=== PATIENT | female | born 1955 | race Caucasian/White ===

== ENCOUNTER 2024-06-08 22:42 | Inpatient (IN) | payer OTHER, SELFPAY ==
[2024-06-08 17:51] VITALS: BP 155/109
[2024-06-08 18:16] LABS: % Basophils 0.3 % (0-2); % Immature Granulocytes 0.6 % (0-0.5); % Lymphocytes 3.5 % (20.5-51.1); % Monocytes 6.6 % (1.7-9.3); Absolute Immature Granulocytes 0.1 10^3/uL (0-0.05); Absolute Lymphocytes 0.5 10^3/uL (1.2-3.4); Absolute Neutrophils 12.8 10^3/uL (1.4-6.5); Hematocrit 46.3 % (37.0-47.0); Hemoglobin 15.4 g/dL (12.0-16.0); Mean Corp Hgb Conc. 33.3 g/dL (33.0-37.0); Mean Corpuscular Hgb 30.3 pg (27.0-31.0); Mean Platelet Volume 10.3 fL (7.4-10.4); Nucleated Red Blood Cells % 0 %; Platelet Count 194 10^3/uL (130-400); Red Blood Cell Count 5.09 10^6/uL (4.20-5.40); Red Cell Dist. Width 12.3 % (11.5-14.5); White Blood Cell Count 14.4 10^3/uL (4.8-10.8)
[2024-06-08 18:34] LABS: Lactic Acid 3.2 mmol/L (0.7-2.0)
[2024-06-08 18:35] LABS: ALT (SGPT) 22 U/L (0-35); AST (SGOT) 34 U/L (14-36); Albumin 4.8 g/dl (3.5-5.0); Alkaline Phosphatase 99 U/L (38-126); Blood Urea Nitrogen 18 mg/dl (7-17); Calcium 8.9 mg/dl (8.4-10.2); Carbon Dioxide 35 mmol/L (22-30); Chloride 87 mmol/L (98-107); Glucose 141 mg/dl (70-99); Potassium 3.7 mmol/L (3.5-5.1); Sodium 134 mmol/L (135-145); Total Bilirubin 0.9 mg/dl (0.2-1.3); Total Protein 8.5 g/dl (6.3-8.2); eGFR > 60.00
[2024-06-08 18:49] LABS: COVID-19 Antigen Negative (Negative)
--- NOTE | 2024-06-08 18:58 | ED.GENMED ---
History of Present Illness
General
Chief Complaint: Cold/Flu/URI Symptoms
Source: patient
Exam Limitations: none
Time Seen by Provider: 06/08/24 18:54
Nursing documentation reviewed up to this point in time: agreed with
History of Present Illness
History of Present Illness:
68 y/o F with h/o valve replacement
homelessness/lives in car
3-4 days of headache, cough, congestion, chills, fatigue, mild diarrhea, and some urinary incontinence
no cp, sob, neck stiffness, confusion, vomiting
says 'i need a note saying i'm sick so i can sleep in a hotel.'
pt has a chronic murmur
no h/o endocarditis
nothing taken for feveres today
Past History
Past History
ED Past Medical History: HTN
Social History
Alcohol: None
Review of Systems
Review of Systems
Allergies reviewed?: Yes
All Other Systems: Not applicable
Phy Exam
Physical Exam
Physical Exam:
GENERAL: Alert , in no apparent distress ill-appearing, thin, frail
EYE: pupils equal and reactive
NECK: Supple
ENT: o/p clr, dry mouth, oral pharynx slightly erythematous
CARDIAC: Regular rate and rhythm .
LUNGS: Crackles left base, occasional cough
Back: Significant scoliosis
ABDOMEN: Soft, without focal tenderness, no r/g, no cvat, normal bowel sounds
NEUROLOGICAL: Alert and oriented, no focal neuro deficits
SKIN: Warm and dry, skin intact.
MUSCULOSKELETAL: No edema, well perfused. neg jazzmine's sign
PSYCH: Normal and appropriate interaction.
Sepsis
Sepsis Screening
Sepsis Assessment: Severe Sepsis
Sepsis Screening: Lactate >2mmol/L
Sepsis Screen
Sepsis Screen: Severe Sepsis
Date: 06/09/24
Time: 03:33
Course
Orders/Labs/Results
Orders:
Orders
06/08/24 18:01
COVID-19 Antigen Urgent
Source: Nasal Swab
Complete Blood Count/With Diff Urgent
Comprehensive Metabolic Panel Urgent
Lactic Acid Urgent
Urinalysis Reflex To Culture Urgent
Date Specimen was Collected: 06/08/24
Time Specimen was Collected: 17:55
Urine Microscopic Reflex Cult Urgent
Influenza A+B Rapid Molecular Urgent
ANTOLIN Source: Nasal Swab
Specimen Description:
Date Specimen was Collected: 06/08/24
Time Specimen was Collected: 17:55
Urine Culture Urgent
ANTOLIN Source: U
Specimen Description:
Date Specimen was Collected: 06/08/24
Time Specimen was Collected: 17:55
06/08/24 19:09
0.9% Sodium Chloride 1000 ml [Nss] 1,000 ml IV BOLUS
Acetaminophen [Tylenol] 650 mg PO NOW STA
06/08/24 19:22
CR Chest - 2 Views Urgent
Comment:
Reason For Exam: fever, cough
06/08/24 19:47
Blood Culture Urgent
ANTOLIN Source: Blood/Venous
Specimen Description:
06/08/24 21:28
Piperacillin/Tazo 3.375 Gram [Zosyn] 3.375 gram in 50 ml IV NOW
06/08/24 21:35
Azithromycin 500 mg/250 ml [Zithromax Infusion] 500 mg in 250 ml IV NOW
CefTRIAXone [Rocephin] 2,000 mg IV NOW STA
06/08/24 22:00
Flush (0.9% Sodium Chloride) [Flush (Nss)] See Dose Instructions IV PER PROTOCOL
06/08/24 22:24
Admit/Transfer Patient As Directed
Co-Sign Provider:
Level of Care: Inpatient admission
Assign to:: Medical/Surgical
Physician / Group: Hospitalist
Diagnosis: PNA
Reason for Hospitalization: PNA
Expected length of stay greater than two midnights?: Yes
ELOS- Estimated Length of Stay in days: 4
I certify the patient meets the requirements for IP care: Yes
PRN Pain Medication Management As Directed
May give lesser potent ordered pain med per pt: Yes
preference::
Protocol:: Medication orders for pain may be administered in a
manner that supports deferring to patient preference
when the pt is:
- Requesting an ordered lesser potent pain medication.
Least to most potent pain medications are defined
as: acetaminophen < NSAID < tramadol < opioids
(morphine, oxycodone, hydromorphone).
- Requesting a lesser dose of the same medication IF
ORDERED.
- Requesting a less intrusive route of administration
if both routes are prescribed by the provider (PO <
IV).
06/08/24 22:25
Code Status As Directed
Resuscitation Status: Full Code
06/09/24 00:47
0.9% Sodium Chloride 1000 ml [Nss] 1,000 ml IV 200 mls/hr
06/09/24 00:47
Respiratory Culture/Gram Stain Urgent
ANTOLIN Source: Sputum
Specimen Description:
Activity As Directed
Activity Level: Out of Bed-Early Mobility
Intake/ Output As Directed
Frequency: Per unit guidelines
Pneumatic Compression Sleeves As Directed
Type: Knee high
Vital Signs As Directed
Frequency: Per unit guidelines
Weight As Directed
Frequency: Once
Comment: on admission
Rx Incentive Spirometry [RESP] Routine
Frequency: q1h while awake
Rx Pep / Acapela [RESP] Routine
Pt Eval And Treat Routine
Treatment: eval gait
Activity Level: Ambulate
DX Deep Vein Thrombosis Video Routine
06/09/24 06:00
Echo 2D MMode Color/Doppler IN AM
Reason for Study: heart murmur and h/o aortic graft
Regular
At Your Request: Full Participation
Does patient need a safe tray?: No
Basic Metabolic Panel IN AM
Complete Blood Count/No Diff IN AM
06/09/24 22:00
Azithromycin 500 mg/250 ml [Zithromax Infusion] 500 mg in 250 ml IV Q24H
CefTRIAXone [Rocephin] 1,000 mg IV Q24H
Abnormal Lab Results
06/08/24
18:01
WBC 14.4 H 10^3/uL
(4.8-10.8)
Abs Immat Gran (auto) 0.1 H 10^3/uL
(0-0.05)
Absolute Neuts (auto) 12.8 H 10^3/uL
(1.4-6.5)
Absolute Lymphs (auto) 0.5 L 10^3/uL
(1.2-3.4)
Absolute Monos (auto) 1.0 H 10^3/uL
(0.1-0.6)
Immature Gran % 0.6 H %
(0-0.5)
Neutrophils % 89.0 H %
(42.2-75.2)
Lymphocytes % 3.5 L %
(20.5-51.1)
Sodium 134 L mmol/L
(135-145)
Chloride 87 L mmol/L
(98-107)
Carbon Dioxide 35 H mmol/L
(22-30)
BUN 18 H mg/dl
(7-17)
Glucose 141 H mg/dl
(70-99)
Lactic Acid 3.2 H mmol/L
(0.7-2.0)
Total Protein 8.5 H g/dl
(6.3-8.2)
Ur Occult Blood Reflex 1+ A
(Negative)
Leukocyte Esterase Rfl 1+ A
(Negative)
Urine RBC 3-6 A /HPF
(0-2)
Urine Bacteria (Reflex) Many A
(Negative)
Urine Albumin (Reflex) 3+ A
(Neg - Trace)
06/08/24 18:01
06/08/24 18:01
Vital Signs
Temp: 38.1 C
Initial and Last Documented VS:
Initial Vital Signs
Temp Pulse Resp BP Pulse Ox
36.9 C 87 20 155/109 93
06/08/24 17:51 06/08/24 17:51 06/08/24 17:51 06/08/24 17:51 06/08/24 17:51
Last Documented Vital Signs
Temp Pulse Resp BP Pulse Ox
37.0 C 82 18 136/67 99
06/09/24 01:01 06/09/24 01:01 06/09/24 01:01 06/09/24 01:01 06/09/24 01:51
MDM/Problems Addressed
Differential Diagnosis Includes:
pna, sepsis, bacteremia, uti
MDM/Problems Addressed:
stefano gaitan
68 y/o F hmoeless, lives in car
htn, bipolar
denies IVDA
3 days uri sxs, cough, fever, headache, fatigue
febrile here, pulse ox 93%, crackles L base, looks ill, hypertensive
lactic 3, wbc 14, flu/covid neg, cxr L loculated pleural effusion
oh to start with rocephin/zithro fo rabx
pt requires admission
*Critical Care Note
Total Time (30-74mins, 75-104mins- exclusive of procedures): Not Applicable
ED Attending Note
-
Portions of this chart may have been created with voice recognition software.� Occasional wrong word or��sound alike� substitutions may have occurred due to the inherent limitations of voice recognition software.
Discharge Plan
Departure
Patient Disposition: Admit
Date of Disposition: 06/08/24
Time of Disposition: 21:21
Admit to: Med/Surg
Presentation/result/management discussed w/ accepting MD/DO: Hospitalist
Condition: Fair
Covid-19: Negative COVID-19
Discharge Problem:
Pneumonia, Acidosis, lactic
Interventions
Interventions:
*Risk Screen - Suicide Last Done: 06/09/24 01:15
*General Assessment Last Done: 06/08/24 17:51
*Neglect/Abuse Screening Last Done: 06/08/24 19:45
ED- Fall Risk Assessment Last Done: 06/08/24 19:45
*ED COVID-19 Vaccine History Last Done: 06/09/24 01:03
*Nursing Disposition Last Done: 06/08/24 19:45
ED- Pulmonary Assessment Last Done: 06/08/24 19:45
Discharge Date and Time
Discharge Date/Time: 06/09/24 00:42
[2024-06-08 19:36] VITALS: BMI 18.4
[2024-06-08] MEDS: TYLENOL 650 MG PO (19:47)
[2024-06-08] MEDS: NSS 1000 IV (19:48)
[2024-06-08 21:01] VITALS: BP 119/64
[2024-06-08 21:35] VITALS: BP 115/60
[2024-06-08] MEDS: ROCEPHIN 2000 MG IV (21:43)
[2024-06-08] MEDS: ZITHROMAX INFUSION 250 IV (21:46)
[2024-06-08 22:12] VITALS: BP 101/56
--- NOTE | 2024-06-08 22:16 | HPS.HSE ---
Family Physician
-
Family Physician: NOT KNOW UNKNOWN - PT DOES
Chief Complaint
-
Cough
History of Present Illness
68 y/o woman with h/o aortic graft, currently homelessness and living in her car has had 3-4 days of headache, cough, congestion, chills, fatigue, mild diarrhea, and some urinary incontinence. She reports no cp, sob, neck stiffness, confusion,
vomiting. Pt stated that she has a chronic murmur. and reports no past h/o endocarditis. At the time of my exam she appeared very weak. ER Xray showed:Small loculated left pleural effusion.
Medical History
Past Medical History
Past Medical History: Reports Other
Additional Past Medical History:
Essential HTN
Aortic graft
Past Surgical History: Reports Other
Additional Past Surgical History:
See above
Social History
Tobacco: Non-smoker
Alcohol: None
Drug: None
Living: Homeless
Family History
Family History: Not pertinent
Allergies / Home Medications
Allergies reflects when Allergies were last updated in [employer].
Home Medications with original date entered in [employer]
Allergy/Medication List:
Allergies
Allergy/AdvReac Type Severity Reaction Status Date / Time
No Known Allergies Allergy Verified 06/08/24 17:51
No home meds.
If medication reconciliation has not been performed, why?: Medication List N/A
Review of Systems
-
Unable to obtain full review of systems at this time due to: Acuity
History Source: Patient
A 12 point ROS was completed and negative except as noted: Yes
Physical Exam
Vital Signs
Vital Signs
Temp Pulse Resp BP Pulse Ox
99.7 F 83 26 115/60 91
06/08/24 21:01 06/08/24 22:12 06/08/24 22:12 06/08/24 21:35 06/08/24 22:12
Physical Exam
General: Respiratory Distress, Appears in Distress, Pain, Appears Chronically Ill and Cachectic
HEENT: NormoCephalic, Nose Appears Normal and Ears Appear Normal
Respiratory: Rhonchi and Decreased Breath Sounds
Cardiac: S1/S2, Regular Rhythm and Murmur
GI: Soft, Non Tender and Non Distended
Musculoskeletal: No Clubbing, No Cyanosis and No Edema
Skin: Warm and Dry
Neuro: Awake and Alert
Psych: Calm
Laboratory Results
-
06/08/24 18:01
06/08/24 18:
Laboratory Results
Lactic Acid 3.2 mmol/L (0.7-2.0) H 06/08/24 18:01
Total Bilirubin 0.9 mg/dl (0.2-1.3) 06/08/24 18:01
AST 34 U/L (14-36) 06/08/24 18:01
ALT 22 U/L (0-35) 06/08/24 18:01
Alkaline Phosphatase 99 U/L (38-126) 06/08/24 18:01
Data Reviewed
-
Lab Data: Labs Reviewed by me
Impression/Plan
-
IMPRESSION:
68 woman with a pneumonia
PLAN:
1. Pneumonia - community acquired. Elevated LA, but vitals stable.
ABx per protocol z-mycin and rocephin
Follow for clinical improvement
IV saline
Supportive care
Encourage PO nutrition
2. BUN/Creat > 20, likely from acute metabolic need
IV saline
Check renal function in am
3. Heart murmur and h/o aortic graft and now active infection
Blood cultures
Check echo in am
Full code
VCD for DVTp
[2024-06-08 22:20] LABS: Urine Albumin 3+ (Neg - Trace); Urine Bilirubin Negative (Negative); Urine Character Clear (Clear); Urine Color Yellow; Urine Glucose Negative (Negative); Urine Ketone Negative (Negative); Urine Leukocyte 1+ (Negative); Urine Nitrite Negative (Negative); Urine Occult Blood 1+ (Negative); Urine Urobilinogen 1+ (Neg - 1+)
[2024-06-08 22:29] LABS: Urine Amorphous Seen
[2024-06-08 22:31] LABS: Urine Bacteria Many (Negative)
[2024-06-08 22:32] LABS: Urine Calcium Oxalate Crystals Seen
[2024-06-08 23:00] VITALS: BP 110/60
[2024-06-09 01:01] VITALS: BP 136/67; BMI 17.8
[2024-06-09] MEDS: NSS 1000 IV ×3 (01:03→12:13)
--- NOTE | 2024-06-09 01:55 | TRANSFER ---
pt arrived from ED on stretcher. pt ambulated from stretcher to bed with RN as standby assist. pt AAOx3 upon arrival, drowsy and lethargic. VSS. oriented pt to room, call tabor within reach, plan of care ongoing.
[2024-06-09 06:00] VITALS: BMI 17.8
[2024-06-09 07:48] LABS: Blood Urea Nitrogen 22 mg/dl (7-17); Calcium 7.9 mg/dl (8.4-10.2); Carbon Dioxide 33 mmol/L (22-30); Chloride 95 mmol/L (98-107); Estimated Creatinine Clearance 62 ml/min; Glucose 91 mg/dl (70-99); Potassium 3.3 mmol/L (3.5-5.1); Sodium 134 mmol/L (135-145); eGFR > 60.00
[2024-06-09 07:55] VITALS: BP 135/65
[2024-06-09 07:56] LABS: Hemoglobin 13.4 g/dL (12.0-16.0); Mean Corp Hgb Conc. 33.5 g/dL (33.0-37.0); Mean Corpuscular Hgb 30.4 pg (27.0-31.0); Mean Corpuscular Volume 90.7 fL (81.0-99.0); Mean Platelet Volume 10.4 fL (7.4-10.4); Platelet Count 148 10^3/uL (130-400); Red Blood Cell Count 4.41 10^6/uL (4.20-5.40); Red Cell Dist. Width 12.4 % (11.5-14.5); White Blood Cell Count 12.5 10^3/uL (4.8-10.8)
--- NOTE | 2024-06-09 09:53 | W.PN.HOSP.TC ---
Today's Communication/Plan
-
Potassium replacement
Cough medicine
CT chest
EKG
Echo
Urine drug screen
Add PRN Hydralazine
Assessment / Plan
Assessment / Plan
Physical Exam
General: not in respiratory Distress, Appears Chronically Ill and Cachectic
HEENT: Normocephalic, Nose Appears Normal and Ears Appear Normal
Respiratory: Rhonchi and Decreased Breath Sounds, Scoliosis
Cardiac: S1/S2,
GI: Soft, Non Tender and Non Distended
Musculoskeletal: No Clubbing, No Cyanosis and No Edema
Skin: Warm and Dry
Neuro: Awake and Alert
Psych: Calm
# Acute respiratory distress
Community acquired Pneumonia -
Sepsis POA with lactic acidosis, tachycardia, mild fever, leukocytosis
c/w IV z-mycin and Rocephin
Will order chest CT
IV saline
Add cough medicine
WBC is coming down
Supportive care
Check urine drug screen
Encourage PO nutrition
# High BP on arrival
Improved since admission,likely stress related, check urine drug screen
No history of drug use.
Add PRN hydralazine
# Under weight
# Hypokalemia
replace
#Hyponatremia
# Heart murmur and h/o aortic graft and now active infection
Blood cultures
Order EKG
Check echo in am
Full code
Total time spent to see the patient, examine the patient, review data and lab results, discuss treatment plan with patient and nursing staff around 55 minutes
Anticipated Discharge: > 48 hours
Subjective/Interval History
-
Date of Service: June 09, 2024
She complains of weakness, fatigue, cough
Objective Data
-
Labs:
Laboratory Results
06/09/24
06:36
WBC 12.5 H
Hgb 13.4
Hct 40.0
Plt Count 148 D
Sodium 134 L
Potassium 3.3 L
Chloride 95 L
Carbon Dioxide 33 H
BUN 22 H
Creatinine 0.7
Glucose 91
Calcium 7.9 L
Vital Signs:
Vital Signs
Temp Pulse Resp BP Pulse Ox
98.2 F 76 16 135/65 97
06/09/24 07:55 06/09/24 07:55 06/09/24 07:55 06/09/24 07:55 06/09/24 07:55
I&O
06/08/24 06/09/24 06/10/24
06:59 06:59 06:59
Intake Total 800 / 800
Balance 800 / 800
--- NOTE | 2024-06-09 10:01 | W.PN.HOSP.TC ---
Today's Communication/Plan
-
CT chest
Add DVT prophylaxis
Assessment / Plan
Assessment / Plan
Physical Exam
General: not in respiratory Distress, Appears Chronically Ill and Cachectic
HEENT: Normocephalic, Nose Appears Normal and Ears Appear Normal
Respiratory: Rhonchi and Decreased Breath Sounds, Scoliosis
Cardiac: S1/S2,
GI: Soft, Non Tender and Non Distended
Musculoskeletal: No Clubbing, No Cyanosis and No Edema
Skin: Warm and Dry
Neuro: Awake and Alert
Psych: Calm
# Acute respiratory distress
Community acquired Pneumonia -
Sepsis POA with lactic acidosis, tachycardia, mild fever, leukocytosis
c/w IV z-mycin and Rocephin
Will order chest CT
IV saline
Add cough medicine
WBC is coming down
Supportive care
Check urine drug screen
Encourage PO nutrition
# High BP on arrival
Improved since admission,likely stress related, check urine drug screen
No history of drug use.
Add PRN hydralazine
# Under weight
# Hypokalemia
replace
#Hyponatremia
# Heart murmur and h/o aortic graft and now active infection
Blood cultures
Order EKG
Check echo in am
Full code
Total time spent to see the patient, examine the patient, review data and lab results, discuss treatment plan with patient and nursing staff around 55 minutes
Anticipated Discharge: > 48 hours
Subjective/Interval History
-
Date of Service: June 09, 2024
Positive SOB
No chest pain
Still cough
Objective Data
-
Labs:
Laboratory Results
06/09/24
06:36
WBC 12.5 H
Hgb 13.4
Hct 40.0
Plt Count 148 D
Sodium 134 L
Potassium 3.3 L
Chloride 95 L
Carbon Dioxide 33 H
BUN 22 H
Creatinine 0.7
Glucose 91
Calcium 7.9 L
Vital Signs:
Vital Signs
Temp Pulse Resp BP Pulse Ox
98.2 F 76 16 135/65 97
06/09/24 07:55 06/09/24 07:55 06/09/24 07:55 06/09/24 07:55 06/09/24 07:55
I&O
06/08/24 06/09/24 06/10/24
06:59 06:59 06:59
Intake Total 800 / 800
Balance 800 / 800
[2024-06-09] MEDS: ROBITUSSIN AC 10 ML PO ×3 (10:44→22:50)
[2024-06-09] MEDS: KCL ELIXIR 40 MEQ PO (10:44)
[2024-06-09 12:02] LABS: Amphetamines Positive (Negative); Barbiturates Negative (Negative); Benzodiazepines Negative (Negative); Buprenorphine Negative (Negative); Cocaine Negative (Negative); Marijuana Negative (Negative); Methadone Negative (Negative); Methamphetamines Negative (Negative); Opiates Negative (Negative); Phencyclidine Negative (Negative); Tricyclic Antidepressants Negative (Negative)
[2024-06-09 12:49] LABS: Fentanyl, Urine Negative (Negative)
--- NOTE | 2024-06-09 14:45 | CM ---
CM met with pt bedside
Pt has been homeless for 10 years and resides in her car
She is independent with her ADLs- denies DMEs
Works part-time for a [employer]
Notes her disability was termed in Mar 2024
PCP- [facility]
Rx- Mainor Bowser
Pt notes she believes she has MA secondary policy
Card not on person currently
Pt was tearful through assessment
She requested CM coordinate with Kacie WHEELER for hotel coverage on dc
She has worked with homeless outreach program and does not feel safe in [facility]
She notes poor past experience with [facility], recommended reconsideration
Discharge Disposition- home with homeless resources, watch O2 needs
[2024-06-09 15:30] VITALS: BP 134/65
[2024-06-09] MEDS: LOVENOX 30 MG SC (17:21)
[2024-06-09] MEDS: ROCEPHIN 1000 MG IV (20:45)
[2024-06-09] MEDS: STERILE WATER FOR INJECTION 10 ML IV (20:45)
[2024-06-09] MEDS: ZITHROMAX INFUSION 250 IV (20:46)
[2024-06-09] MEDS: TYLENOL 1000 MG PO (20:50)
[2024-06-09 23:59] VITALS: BP 111/66
[2024-06-10] MEDS: ROBITUSSIN AC 10 ML PO ×4 (04:15→20:10)
[2024-06-10 08:24] LABS: Hematocrit 41.7 % (37.0-47.0); Hemoglobin 13.3 g/dL (12.0-16.0); Mean Corp Hgb Conc. 31.9 g/dL (33.0-37.0); Mean Corpuscular Hgb 29.8 pg (27.0-31.0); Mean Corpuscular Volume 93.3 fL (81.0-99.0); Mean Platelet Volume 10.6 fL (7.4-10.4); Platelet Count 163 10^3/uL (130-400); Red Blood Cell Count 4.47 10^6/uL (4.20-5.40); Red Cell Dist. Width 12.6 % (11.5-14.5); White Blood Cell Count 9.6 10^3/uL (4.8-10.8)
[2024-06-10 08:40] VITALS: BP 174/86
[2024-06-10 08:48] LABS: ALT (SGPT) 16 U/L (0-35); AST (SGOT) 32 U/L (14-36); Albumin 3.2 g/dl (3.5-5.0); Alkaline Phosphatase 92 U/L (38-126); Blood Urea Nitrogen 21 mg/dl (7-17); Calcium 8.6 mg/dl (8.4-10.2); Carbon Dioxide 33 mmol/L (22-30); Chloride 98 mmol/L (98-107); Estimated Creatinine Clearance 73 ml/min; Glucose 85 mg/dl (70-99); Sodium 136 mmol/L (135-145); Total Bilirubin 0.8 mg/dl (0.2-1.3); eGFR > 60.00
[2024-06-10] MEDS: APRESOLINE 5 MG PO (10:11)
[2024-06-10 10:55] VITALS: BP 150/70; PULSE 91; O2SAT 94
--- NOTE | 2024-06-10 11:37 | W.PN.HOSP.TC ---
Today's Communication/Plan
-
CT chest with contrast as recommended by radiology
Low dose Amlodipine for HTN
Assessment / Plan
Assessment / Plan
Physical Exam
General: not in respiratory Distress, Appears Chronically Ill and Cachectic
HEENT: Normocephalic, Nose Appears Normal and Ears Appear Normal
Respiratory: Rhonchi and Decreased Breath Sounds, Scoliosis
Cardiac: S1/S2,
GI: Soft, Non Tender and Non Distended
Musculoskeletal: No Clubbing, No Cyanosis and No Edema
Skin: Warm and Dry
Neuro: Awake and Alert
Psych: Calm
# Acute respiratory distress
Community acquired Pneumonia -
Sepsis POA with lactic acidosis, tachycardia, mild fever, leukocytosis
c/w IV z-mycin and Rocephin
CT chest showed consolidation in left lung. Reviewed by radiologist, recommended IV contrast. I discussed with the patient, agreeable to do the test
IV saline
Add cough medicine
WBC is coming down
Supportive care
Encourage PO nutrition
# Essential hypertension, uncontrolled
Due to IV contrast today, we will hold off on hydrochlorothiazide. Will give dose of oral amlodipine
Urine drug screen positive for amphetamines but she seems to be on Adderall
No history of drug use.
Add PRN hydralazine
# Under weight
# Hypokalemia
replaced
#Hyponatremia
# Heart murmur and h/o aortic graft and now active infection
Blood culture so far negative
EKG showed SR
Echocardiogram showed LVEF 70 to 75%, aortic sclerosis without stenosis, moderate concentric left ventricular hypertrophy.
Full code
Total time spent to see the patient, examine the patient, review data and lab results, discuss treatment plan with patient and nursing staff around 55 minutes
Anticipated Discharge: > 48 hours
Subjective/Interval History
-
Date of Service: June 10, 2024
She reports feeling better than yesterday
No significant cough
Objective Data
-
Labs:
Laboratory Results
06/10/24
07:47
WBC 9.6
Hgb 13.3
Hct 41.7
Plt Count 163
Sodium 136
Potassium 4.0
Chloride 98
Carbon Dioxide 33 H
BUN 21 H
Creatinine 0.6
Glucose 85
Calcium 8.6
Total Bilirubin 0.8
AST 32
ALT 16
Alkaline Phosphatase 92
Vital Signs:
Vital Signs
Temp Pulse Resp BP Pulse Ox
97.7 F 83 20 170/80 97
06/10/24 08:40 06/10/24 08:40 06/10/24 08:40 06/10/24 10:11 06/10/24 08:40
I&O
06/09/24 06/10/24 06/11/24
06:59 06:59 06:59
Intake Total 800 / 800 480 / 480
Output Total 200 / 200
Balance 800 / 800 280 / 280
[2024-06-10 11:43] VITALS: BP 150/72
[2024-06-10] MEDS: NORVASC 5 MG PO (13:07)
[2024-06-10] MEDS: ADDERALL 30 MG PO (14:35)
[2024-06-10 15:54] VITALS: BP 168/83
--- NOTE | 2024-06-10 16:16 | CM ---
Cm met with Amanda at bedside today; support provided along with information about [facility] program for her to contact for housing resources. Pt is not trusting of assistance programs, so likely will not reach out to the agency, but does have
the resources and contact information.
[2024-06-10] MEDS: LOVENOX 30 MG SC (20:08)
[2024-06-10] MEDS: STERILE WATER FOR INJECTION 10 ML IV (21:51)
[2024-06-10] MEDS: ZITHROMAX INFUSION 250 IV (21:51)
[2024-06-10] MEDS: ROCEPHIN 1000 MG IV (21:51)
[2024-06-10 23:43] VITALS: BP 130/74
[2024-06-11] VITALS (16 sets, daily range): BP systolic 103–149; BP diastolic 50–101; PULSE 2–86
[2024-06-11] MEDS: ROBITUSSIN AC 10 ML PO (01:18)
[2024-06-11] MEDS: DUONEB 3 ML INH ×3 (05:48→19:27)
--- NOTE | 2024-06-11 06:13 | PTCARENOTE ---
pt rang tabor for assistance with nose bleed. pt initially very anxious, tearful, and tachypneic. pt complaining she is SOB, desatting on 2L down to 85%. GARDENING SUPERVISOR made aware. vital signs done- BP 145/81, HR 88, increased oxygen to 5L on nasal cannula, pt
now satting at 95%. EKG completed per GARDENING SUPERVISOR showing NSR with PACs. new orders for mucinex q12, saline nasal spray, and breathing treatment provided by respiratory therapist. pt now sitting comfortably in bed without complaints. will continue to
monitor closely.
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
--- NOTE | 2024-06-11 09:32 | W.PN.HOSP.TC ---
Today's Communication/Plan
-
c/w IV ABX, change to 2 gm Rocephin
F/W pulmonary recommendations
c/w Amlodipine
Assessment / Plan
Assessment / Plan
Physical Exam
General: not in respiratory Distress, Appears Chronically Ill and Cachectic
HEENT: Normocephalic, Nose Appears Normal and Ears Appear Normal
Respiratory: Rhonchi and Decreased Breath Sounds, Scoliosis
Cardiac: S1/S2,
GI: Soft, Non Tender and Non Distended
Musculoskeletal: No Clubbing, No Cyanosis and No Edema
Skin: Warm and Dry
Neuro: Awake and Alert
Psych: Calm
# Acute respiratory distress
Community acquired Pneumonia -
Sepsis POA with lactic acidosis, tachycardia, mild fever, leukocytosis
c/w IV z-mycin and Rocephin, will change to [address] chest showed consolidation in left lung. Reviewed by radiologist, recommended IV contrast. CT chest with IV contrast showed left pleural effusion/left lung pneumonia/possible central obstructing mass/small right pleural effusion/right lower
lobe pneumonia.
Blood culture, no growth.
Urine culture, no growth
will consult pulmonary for further evaluation. Appreciate pulmonary help
Added cough medicine & as needed nebulizer treatment.
WBC is coming down
Supportive care
# Remote tobacco use quit more than 30 years ago
Denies seasonal allergies/asthma
# Essential hypertension,
better controlled
c/w amlodipine. Holding HCTZ due to use of IV contrast, concern of hyponatremia especially with ongoing pulmonary disease, might exacerbate SIADH.
# ADHD
Urine drug screen positive for amphetamines, she is on Adderall
No history of drug use.
# Under weight
# Hypokalemia
replaced
#Hyponatremia, mild
c/w regular diet
# Heart murmur and h/o aortic graft.
Patient denies history of chest pain.
Blood culture so far negative
EKG showed SR
Echocardiogram showed LVEF 70 to 75%, aortic sclerosis without stenosis, moderate concentric left ventricular hypertrophy.
# Case management is consulted to help patient with her living situation.
Full code
Total time spent to see the patient, examine the patient, review data and lab results, discuss treatment plan with patient and nursing staff around 57 minutes
Anticipated Discharge: > 48 hours
Subjective/Interval History
-
Date of Service: June 11, 2024
No chest pain
No sob
No abdominal pain
Objective Data
-
Labs:
Laboratory Results
06/11/24
06:00
Sodium Pending
Potassium Pending
Chloride Pending
Carbon Dioxide Pending
BUN Pending
Creatinine Pending
Glucose Pending
Calcium Pending
Vital Signs:
Vital Signs
Temp Pulse Resp BP Pulse Ox
98.3 F 87 20 149/75 98
06/11/24 09:11 06/11/24 09:11 06/11/24 09:11 06/11/24 09:11 06/11/24 09:11
I&O
06/10/24 06/11/24 06/12/24
06:59 06:59 06:59
Intake Total 480 / 480 1700 / 1700
Output Total 200 / 200 200 / 200
Balance 280 / 280 1500 / 1500
[2024-06-11 11:14] LABS: Blood Urea Nitrogen 15 mg/dl (7-17); Calcium 8.7 mg/dl (8.4-10.2); Carbon Dioxide 36 mmol/L (22-30); Chloride 94 mmol/L (98-107); Estimated Creatinine Clearance 73 ml/min; Glucose 104 mg/dl (70-99); Potassium 4.1 mmol/L (3.5-5.1); Sodium 131 mmol/L (135-145); eGFR > 60.00
[2024-06-11] MEDS: ADDERALL PO ×2 (13:07→14:06)
--- NOTE | 2024-06-11 13:54 | W.PN.UPDATE ---
Addendum entered and electronically signed by Pam Singh MD 06/11/24 17:08:
Reassessed patient multiple times throughout the day post bronchoscopy in the PACU
She is now awake, on high flow, 100%. She appears to be somewhat stronger, less short of breath, better inspiratory effort
Continue with high flow for now
Okay to advance diet
Encourage airway clearance
Reviewed with PACU nursing
Original Note:
Update Note
Progress Note Update
See bronchoscopy note for complete details
LMA was used, anesthesia present
Significant thick secretions throughout the left mainstem and some in the right mainstem. Almost complete obstruction of the left mainstem. This area was cleared with aggressive suction. There is mild oozing following removal of secretions
suggesting element of chronicity, inflammatory changes. Distally no obvious endobronchial lesions. There was significant malacia involving the left mainstem.
Patient developed hypoxia to 86% after about 3 to 4 minutes therefore procedure was terminated. Hypoventilation, deconditioning, hypoxia postprocedure requiring anesthesia assistance. Patient placed on BiPAP with improvement of saturation to 96%
Updated daughter by phone (Caren: [phone])
Reviewed clinical course. Daughter states she saw her 10 days ago at which time she had a cough but otherwise no other significant complaints
Maintain on BiPAP, eventually transition to high flow once more awake
Will need more aggressive airway clearance
Empiric amujid-ojm-hzqno nebulized therapy, head of bed elevated, aspiration precautions
Would maintain n.p.o. for now except medications
Would transferred to IMU
Reviewed with primary service
[2024-06-11] MEDS: MUCINEX PO (14:06)
[2024-06-11] MEDS: NORVASC PO (14:06)
--- NOTE | 2024-06-11 18:54 | PTCARENOTE ---
Patient arrived from PACU at change of shift. Placed on monitor and oriented to room. Report given to Amanda NARAYAN. Transfer endorsed to rib bender.
[2024-06-11] MEDS: MUCINEX 600 MG PO (20:12)
[2024-06-11] MEDS: LOVENOX 30 MG SC (20:12)
[2024-06-11] MEDS: ROBITUSSIN 100 MG PO (21:20)
[2024-06-11] MEDS: ROCEPHIN 1000 MG IV (21:20)
[2024-06-11] MEDS: STERILE WATER FOR INJECTION 10 ML IV (21:21)
[2024-06-11] MEDS: ZITHROMAX INFUSION 250 IV (22:31)
[2024-06-12] VITALS (10 sets, daily range): BP systolic 109–151; BP diastolic 54–104; PULSE 81; O2SAT 93
--- NOTE | 2024-06-12 01:01 | PTCARENOTE ---
Patient is Aox3. Patient is on HFNC 40L 50%, sating at 95%. NSR on monitor. Patient has dry cough, see MAR. Good appetite. Assessment and vital signs as documented. Call tabor in reach.
--- NOTE | 2024-06-12 04:05 | PTCARENOTE ---
Bladder scan patient due to no urination, BS scanned for greater than 450 ml. Asked patient if she needed to urinate and she said no. Educated patient that she has excess urine in bladder that she needs to empty. She said ' Im not getting up and
this is supposed to be a hospital to help me, I am just going to leave'. RN stated that patient is HFNC and needs care. Patient proceeded to remove HFNC and say 'she was leaving because she will not go to the bathroom'. HFNC placed put on patient
and patient returned to bed. Patient refusing to attempt to urinate. Continuing to reassess and attempt urination.
[2024-06-12] MEDS: ROBITUSSIN 100 MG PO ×2 (05:28→20:02)
--- NOTE | 2024-06-12 05:44 | PTCARENOTE ---
patient refused lab work this AM, does not want to be woken up and being uncooperative.
--- NOTE | 2024-06-12 06:37 | W.PN.HOSP.TC ---
Today's Communication/Plan
-
c/w antibiotics
wean down O2 need, later transfer out to Med/surg floor
Assessment / Plan
Assessment / Plan
Physical Exam
General: not in respiratory Distress, Appears Chronically Ill and Cachectic
HEENT: Normocephalic, Nose Appears Normal and Ears Appear Normal
Respiratory: Rhonchi and Decreased Breath Sounds, Scoliosis
Cardiac: S1/S2,
GI: Soft, Non Tender and Non Distended
Musculoskeletal: No Clubbing, No Cyanosis and No Edema
Skin: Warm and Dry
Neuro: Awake and Alert
Psych: Calm
# Post bronchoscopy acute hypoxic respiratory failure requiring high flow O2
Her O2 requirement is going down, try to change to nasal O2
# Acute respiratory distress
Community acquired Pneumonia -
Sepsis POA with lactic acidosis, tachycardia, mild fever, leukocytosis
c/w IV z-mycin and Rocephin, will change to [address] chest showed consolidation in left lung. Reviewed by radiologist, recommended IV contrast. CT chest with IV contrast showed left pleural effusion/left lung pneumonia/possible central obstructing mass/small right pleural effusion/right lower
lobe pneumonia.
Blood culture, no growth.
Urine culture, no growth
S/p bronchoscopy 06/[address] Singh showed suspicious left mainstem lesion, atelectasis of the left upper lobe, atelectasis of the left lower lobe with significant inspissated secretions post suctioning. Culture is pending. Cytology is pending.
Appreciate pulmonary help
Added cough medicine & as needed nebulizer treatment.
WBC is coming down
Supportive care
# Remote tobacco use quit more than 30 years ago
Denies seasonal allergies/asthma
# Essential hypertension,
better controlled
c/w amlodipine. Holding HCTZ due to use of IV contrast, concern of hyponatremia especially with ongoing pulmonary disease, might exacerbate SIADH.
# ADHD
Urine drug screen positive for amphetamines, she is on Adderall
No history of drug use.
# Under weight
# Hypokalemia
replaced
#Hyponatremia, mild
c/w regular diet
# Heart murmur and h/o aortic graft.
Patient denies history of chest pain.
Blood culture so far negative
EKG showed SR
Echocardiogram showed LVEF 70 to 75%, aortic sclerosis without stenosis, moderate concentric left ventricular hypertrophy.
# Case management is consulted to help patient with her living situation.
Full code
Total time spent to see the patient, examine the patient, review data and lab results, discuss treatment plan with patient and nursing staff around 55 minutes
Anticipated Discharge: > 48 hours
Subjective/Interval History
-
Date of Service: June 12, 2024
She denies sob, less cough
No chest pain or abdominal pain
Objective Data
-
Labs:
Laboratory Results
06/12/24
06:00
WBC Pending
Hgb Pending
Hct Pending
Plt Count Pending
Sodium Pending
Potassium Pending
Chloride Pending
Carbon Dioxide Pending
BUN Pending
Creatinine Pending
Glucose Pending
Calcium Pending
Vital Signs:
Vital Signs
Temp Pulse Resp BP Pulse Ox
98.0 F 73 24 136/104 100
06/12/24 03:36 06/12/24 05:00 06/12/24 05:00 06/12/24 02:00 06/12/24 05:00
I&O
06/10/24 06/11/24 06/12/24
06:59 06:59 06:59
Intake Total 480 / 480 1700 / 1700 50 / 50
Output Total 200 / 200 200 / 200 350 / 350
Balance 280 / 280 1500 / 1500 -300 / -300
[2024-06-12] MEDS: DUONEB 3 ML INH ×4 (07:29→20:17)
[2024-06-12] MEDS: NORVASC 5 MG PO (08:50)
[2024-06-12] MEDS: MUCINEX 600 MG PO ×2 (08:50→20:02)
[2024-06-12] MEDS: ADDERALL 30 MG PO ×2 (08:52→14:23)
--- NOTE | 2024-06-12 09:02 | PTCARENOTE ---
Patient received from motorcycle technician. Patient resting comfortably in bed. No complaints of pain at this time. AAO, VSS. Little issue overnight concerning patient not urinating and per bladder scan was >400. Encouragement to go was unsuccessful as
patient wanted to sleep. Was able to calm patient down relatively early into the shift and has been pleasant since. Was on Highflow N/C but weaned to 2L N/C and tolerating well. Continuing ABX. No fluids via IV. No test scheduled for today.
Call tabor in reach.
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
--- NOTE | 2024-06-12 14:28 | PN.CDI ---
Addendum entered and electronically signed by Shannon Blandon MD 06/12/24 14:34:
Severe Sepsis
Original Note:
CDI
- -
CDI:
Physician Documentation Request
Admit Date: 06/08/24 22:42
Dear Doctor Jamia,
Patient hospitalist for management of sepsis/community acquired pneumonia.
Patient's lactic acid on admission 3.2
Please clarify which of the following most accurately describes the status of the patient's infection:
Severe Sepsis
Sepsis only
Other
Use of terms such as suspected, likely, concern for, or probable (associated with a specific diagnosis that is being evaluated, monitored, or treated as if it exists) are acceptable and can be coded in the inpatient setting, when documented at the
time of discharge.
Thank you,
Etelvina Rudd RN, BSN
CDI Specialist
tiger text
Please use your independent medical judgment in providing your response.
--- NOTE | 2024-06-12 15:20 | PTCARENOTE ---
Report called to Aruna Elizabeth RN. Patient transported with all known belongings.
[2024-06-12] MEDS: LOVENOX 30 MG SC (17:25)
[2024-06-12 19:02] LABS: Hematocrit 36.3 % (37.0-47.0); Hemoglobin 12.1 g/dL (12.0-16.0); Mean Corp Hgb Conc. 33.3 g/dL (33.0-37.0); Mean Corpuscular Hgb 30.2 pg (27.0-31.0); Mean Corpuscular Volume 90.5 fL (81.0-99.0); Mean Platelet Volume 9.8 fL (7.4-10.4); Platelet Count 187 10^3/uL (130-400); Red Blood Cell Count 4.01 10^6/uL (4.20-5.40); Red Cell Dist. Width 12.3 % (11.5-14.5); White Blood Cell Count 6.9 10^3/uL (4.8-10.8)
[2024-06-12 19:14] LABS: Blood Urea Nitrogen 25 mg/dl (7-17); Calcium 8.8 mg/dl (8.4-10.2); Carbon Dioxide 35 mmol/L (22-30); Chloride 95 mmol/L (98-107); Estimated Creatinine Clearance 73 ml/min; Glucose 162 mg/dl (70-99); Sodium 135 mmol/L (135-145); eGFR > 60.00
[2024-06-12] MEDS: STERILE WATER FOR INJECTION 10 ML IV (22:22)
[2024-06-12] MEDS: ZITHROMAX 500 MG PO (22:22)
[2024-06-12] MEDS: ROCEPHIN 1000 MG IV (22:22)
[2024-06-13 00:32] VITALS: BP 138/79
--- NOTE | 2024-06-13 02:30 | W.PN.UPDATE ---
Update Note
Progress Note Update
RN reports pt wanted to try wearing bipap but as soon as RT tried to place pt became anxious and 'freaked out.' RT suggested anxiolytic. Will give low dose xanax.
[2024-06-13] MEDS: ROBITUSSIN 100 MG PO ×2 (02:45→20:31)
[2024-06-13] MEDS: XANAX 0.25 MG PO ×2 (02:45→22:53)
[2024-06-13 07:05] VITALS: BP 157/88
[2024-06-13] MEDS: DUONEB 3 ML INH ×4 (07:55→20:53)
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
[2024-06-13] MEDS: MUCINEX 600 MG PO ×2 (08:53→20:30)
[2024-06-13] MEDS: NORVASC 5 MG PO (08:53)
--- NOTE | 2024-06-13 10:07 | W.PN.HOSP.TC ---
Today's Communication/Plan
-
Follow-up with pulmonary recommendation
Encourage nebulizer treatment and chest therapy
Increase dose of amlodipine to treat severe Raynaud's disease
Add as needed Xanax for emotional distress/anxiety
Assessment / Plan
Assessment / Plan
Physical Exam
General: not in respiratory Distress, Appears Chronically Ill and Cachectic
HEENT: Normocephalic, Nose Appears Normal and Ears Appear Normal
Respiratory: Rhonchi and Decreased Breath Sounds, Scoliosis
Cardiac: S1/S2,
GI: Soft, Non Tender and Non Distended
Musculoskeletal: No Clubbing, No Cyanosis and No Edema
Skin: Warm and Dry
Neuro: Awake and Alert
Psych: Calm
# Post bronchoscopy acute hypoxic respiratory failure requiring high flow O2
Her O2 requirement is going down, try to change to nasal O2
# Acute respiratory distress
Community acquired Pneumonia -
Sepsis POA with lactic acidosis, tachycardia, mild fever, leukocytosis
c/w IV z-mycin and Rocephin, will change to 2 [address] chest showed consolidation in left lung. Reviewed by radiologist, recommended IV contrast. CT chest with IV contrast showed left pleural effusion/left lung pneumonia/possible central obstructing mass/small right pleural effusion/right lower
lobe pneumonia.
Blood culture, no growth.
Urine culture, no growth
S/p bronchoscopy 06/[address] Singh showed suspicious left mainstem lesion, atelectasis of the left upper lobe, atelectasis of the left lower lobe with significant inspissated secretions post suctioning. Culture is no growth on Gram stain, fungal
and AFB are pending. Cytology no malignant cells.
Chest x ray 06/12 showing near complete whiteout/collapse of the left lung
Appreciate pulmonary help
Added cough medicine & as needed nebulizer treatment.
WBC is coming down
Supportive care
# Raynaud's disease
seems significant with color changes and swelling of upper and lower extremities mostly fingers and toes. Probably exacerbated by ongoing emotional stress. Will increase the dose of amlodipine
# Remote tobacco use quit more than 30 years ago
Denies seasonal allergies/asthma
# Essential hypertension,
better controlled
c/w amlodipine. Holding HCTZ due to use of IV contrast, concern of hyponatremia especially with ongoing pulmonary disease, might exacerbate SIADH.
# ADHD
Urine drug screen positive for amphetamines, she is on Adderall
No history of drug use.
Will add PRN Xanax for anxiety
# Under weight
# Hypokalemia
replaced
#Hyponatremia, mild
c/w regular diet
# Heart murmur and h/o aortic graft.
Patient denies history of chest pain.
Blood culture so far negative
EKG showed SR
Echocardiogram showed LVEF 70 to 75%, aortic sclerosis without stenosis, moderate concentric left ventricular hypertrophy.
# Case management is consulted to help patient with her living situation.
Full code
Total time spent to see the patient, examine the patient, review data and lab results, discuss treatment plan with patient and nursing staff around 57 minutes
Anticipated Discharge: > 48 hours
Subjective/Interval History
-
Date of Service: June 13, 2024
Still sob at times
anxious and tearful this morning
Objective Data
-
Vital Signs:
Vital Signs
Temp Pulse Resp BP Pulse Ox
97.4 F 79 18 157/88 96
06/13/24 07:05 06/13/24 08:53 06/13/24 08:00 06/13/24 08:53 06/13/24 08:00
I&O
06/12/24 06/13/24 06/14/24
06:59 06:59 06:59
Intake Total 50 / 50 1739
Output Total 350 / 350
Balance -300 / -300 1739
[2024-06-13] MEDS: ADDERALL PO (13:01)
[2024-06-13] MEDS: ADDERALL 30 MG PO (13:03)
[2024-06-13 15:05] VITALS: BP 145/82
[2024-06-13] MEDS: LOVENOX 30 MG SC (17:14)
--- NOTE | 2024-06-13 18:13 | CM ---
Pt offered [facility] loc[facility] . She declined she said it was scary.
Offered [facility] she said she already had.
Pt said she thought she needed SNF. PT tila indicated VN .
Explained to pt she did not qualify for SNF.
Explained pt could obtained PT script form MD and set up out pt PT for herself and she declined.
Weaned to room air.
Confirmed with admissions she has [facility] primary and [place] [address] insurance.
Continues IV antibiotics.
[2024-06-13 20:40] VITALS: BP 144/88
[2024-06-13] MEDS: NORVASC 10 MG PO (20:41)
[2024-06-13] MEDS: STERILE WATER FOR INJECTION 10 ML IV (21:20)
[2024-06-13] MEDS: ROCEPHIN 1000 MG IV (21:20)
[2024-06-13] MEDS: ZITHROMAX 500 MG PO (21:20)
[2024-06-13 23:00] VITALS: BP 163/88
--- NOTE | 2024-06-13 23:44 | RESPNOTE ---
Attempted to place patient on BiPAP but she panicked and ripped off the mask, stating she is claustrophobic. She was upset and crying, stating she does want to wear the BiPAP because she is aware it will help, but she is not able. RN informed of
attempt and refusal. Machine remains in the room on standby.
[2024-06-14 07:00] VITALS: BP 142/84
[2024-06-14] MEDS: DUONEB 3 ML INH ×4 (07:52→19:44)
[2024-06-14] MEDS: NORVASC 10 MG PO ×2 (08:48→20:28)
[2024-06-14] MEDS: MUCINEX 600 MG PO ×2 (08:48→20:28)
[2024-06-14] MEDS: ADDERALL 30 MG PO (08:48)
--- NOTE | 2024-06-14 09:14 | W.PN.HOSP.TC ---
Today's Communication/Plan
-
follow with pulmonary recommendations, might need another bronchoscopy
Repeat CBC & BMP in AM
c/w High dose Amlodipine for Raynaud's
Assessment / Plan
Assessment / Plan
Physical Exam
General: not in respiratory Distress, Appears Chronically Ill and Cachectic
HEENT: Normocephalic, Nose Appears Normal and Ears Appear Normal
Respiratory: Rhonchi and Decreased Breath Sounds, Scoliosis
Cardiac: S1/S2,
GI: Soft, Non Tender and Non Distended
Musculoskeletal: No Clubbing, No Cyanosis and No Edema
Skin: Warm and Dry
Neuro: Awake and Alert
Psych: Calm
# Post bronchoscopy acute hypoxic respiratory failure requiring high flow O2
Her O2 requirement is going down, try to change to nasal O2
# Acute respiratory distress
Community acquired Pneumonia -
Sepsis POA with lactic acidosis, tachycardia, mild fever, leukocytosis
c/w IV z-mycin and Rocephin, will change to 2 g[address] chest showed consolidation in left lung. Reviewed by radiologist, recommended IV contrast. CT chest with IV contrast showed left pleural effusion/left lung pneumonia/possible central obstructing mass/small right pleural effusion/right lower
lobe pneumonia.
Blood culture, no growth.
Urine culture, no growth
S/p bronchoscopy 06/[address] Singh showed suspicious left mainstem lesion, atelectasis of the left upper lobe, atelectasis of the left lower lobe with significant inspissated secretions post suctioning. Culture is no growth on Gram stain, fungal
and AFB are pending. Cytology no malignant cells.
Chest x ray 06/12 showing near complete whiteout/collapse of the left lung, repeat x ray 06/14 showing same white-out, , might need another bronchoscopy ?
Appreciate pulmonary help
Added cough medicine & as needed nebulizer treatment.
WBC is coming down
Supportive care
# Raynaud's disease
seems significant with color changes and swelling of upper and lower extremities mostly fingers and toes. Probably exacerbated by ongoing emotional stress. c/w 10 mg amlodipine BID.
# Remote tobacco use quit more than 30 years ago
Denies seasonal allergies/asthma
# Essential hypertension,
better controlled
c/w amlodipine. Holding HCTZ due to use of IV contrast, concern of hyponatremia especially with ongoing pulmonary disease, might exacerbate SIADH.
# ADHD
Urine drug screen positive for amphetamines, she is on Adderall
No history of drug use.
c/w PRN Xanax for anxiety
# Under weight
# Hypokalemia
replaced
#Hyponatremia, mild
c/w regular diet
# Heart murmur and h/o aortic graft.
Patient denies history of chest pain.
Blood culture so far negative
EKG showed SR
Echocardiogram showed LVEF 70 to 75%, aortic sclerosis without stenosis, moderate concentric left ventricular hypertrophy.
# Case management is consulted to help patient with her living situation.
Full code
Total time spent to see the patient, examine the patient, review data and lab results, discuss treatment plan with patient and nursing staff around 57 minutes
Anticipated Discharge: > 48 hours
Subjective/Interval History
-
Date of Service: June 14, 2024
No chest pain
Objective Data
-
Vital Signs:
Vital Signs
Temp Pulse Resp BP Pulse Ox
97.5 F 73 20 142/84 96
06/14/24 07:00 06/14/24 08:48 06/14/24 07:55 06/14/24 08:48 06/14/24 07:55
I&O
06/13/24 06/14/24 06/15/24
06:59 06:59 06:59
Intake Total 1740 / 1740 1260 / 1260
Balance 1740 / 1740 1260 / 1260
[2024-06-14] MEDS: ADDERALL PO (14:12)
[2024-06-14 15:00] VITALS: BP 132/66
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
[2024-06-14] MEDS: LOVENOX 30 MG SC (18:29)
[2024-06-14 20:24] VITALS: BP 124/80
[2024-06-14] MEDS: ROBITUSSIN 100 MG PO (20:28)
--- NOTE | 2024-06-14 20:54 | PTCARENOTE ---
Patient requesting shower at start of shift, able to sit in shower on commode chair. Linens and gown changed. Back to bed, resting comfortably, call tabor in reach.
[2024-06-14] MEDS: STERILE WATER FOR INJECTION 10 ML IV (21:52)
[2024-06-14] MEDS: ROCEPHIN 1000 MG IV (21:52)
[2024-06-14] MEDS: ZITHROMAX 500 MG PO (21:52)
[2024-06-14] MEDS: XANAX 0.25 MG PO (22:02)
[2024-06-14 23:02] VITALS: BP 142/82
[2024-06-15 06:42] LABS: Blood Urea Nitrogen 19 mg/dl (7-17); Calcium 8.8 mg/dl (8.4-10.2); Carbon Dioxide 34 mmol/L (22-30); Chloride 100 mmol/L (98-107); Estimated Creatinine Clearance 73 ml/min; Glucose 102 mg/dl (70-99); Potassium 4.7 mmol/L (3.5-5.1); Sodium 137 mmol/L (135-145); eGFR > 60.00
[2024-06-15 07:00] VITALS: BP 128/80
[2024-06-15 07:14] LABS: Hematocrit 41.1 % (37.0-47.0); Hemoglobin 13.5 g/dL (12.0-16.0); Mean Corp Hgb Conc. 32.8 g/dL (33.0-37.0); Mean Corpuscular Hgb 29.9 pg (27.0-31.0); Mean Corpuscular Volume 91.1 fL (81.0-99.0); Mean Platelet Volume 9.6 fL (7.4-10.4); Platelet Count 298 10^3/uL (130-400); Red Blood Cell Count 4.51 10^6/uL (4.20-5.40); Red Cell Dist. Width 12.3 % (11.5-14.5); White Blood Cell Count 6.3 10^3/uL (4.8-10.8)
[2024-06-15] MEDS: DUONEB 3 ML INH ×4 (07:41→20:42)
[2024-06-15] MEDS: ADDERALL 30 MG PO ×2 (09:08→14:29)
[2024-06-15] MEDS: MUCINEX 600 MG PO ×2 (09:08→21:00)
[2024-06-15] MEDS: NORVASC 10 MG PO ×2 (09:08→21:00)
--- NOTE | 2024-06-15 10:16 | W.PN.HOSP.TC ---
Today's Communication/Plan
-
c/w Amlodipine high dose for Raynaud
c/w Rocephin
Stop Zithromax
legionella and Strep test
c/w Nebulizer
Vest therapy
Encourage Acapella
Assessment / Plan
Assessment / Plan
Physical Exam
General: not in respiratory Distress, Appears Chronically Ill and Cachectic
HEENT: Normocephalic, Nose Appears Normal and Ears Appear Normal
Respiratory: Rhonchi and Decreased Breath Sounds, Scoliosis
Cardiac: S1/S2,
GI: Soft, Non Tender and Non Distended
Musculoskeletal: No Clubbing, No Cyanosis and No Edema
Skin: Warm and Dry
Neuro: Awake and Alert
Psych: Calm
# Post bronchoscopy acute hypoxic respiratory failure requiring high flow O2
Her O2 requirement is going down, try to change to nasal O2
# Acute respiratory distress
Community acquired Pneumonia -
Sepsis POA with lactic acidosis, tachycardia, mild fever, leukocytosis
s/p 7 days of Zithromax. Stopped.
IV Rocephin day # 8,
CT chest showed consolidation in left lung. Reviewed by radiologist, recommended IV contrast. CT chest with IV contrast showed left pleural effusion/left lung pneumonia/possible central obstructing mass/small right pleural effusion/right lower
lobe pneumonia.
Blood culture, no growth.
Urine culture, no growth
Check legionella & Strep Ag.
S/p bronchoscopy 06/[address] Singh showed left mainstem lesion, atelectasis of the left upper lobe, atelectasis of the left lower lobe with significant inspissated secretions post suctioning. Culture is no growth on Gram stain, fungal and AFB are
pending. Cytology no malignant cells.
Chest x ray 06/12 showing near complete whiteout/collapse of the left lung, repeat x ray 06/14 showing same white-out.
repeat chest x ray 06/16, if no improvement, might need a repeat bronchoscopy.
Added cough medicine & as needed nebulizer treatment.
WBC came down to normal.
Appreciate pulmonary help, aggressive secretion clearance interventions.
# Raynaud's disease.
Acrocyanosis
Patient denies Lupus or scleroderma, had full work-up years ago and was told she had autoimmune process/ Raynaud's. She doesn't take medications and does not want to take more medications after being discharged. She did not commit to be compliant
with Amlodipine.
Her seems significant with color changes and swelling of upper and lower extremities mostly fingers and toes. Probably exacerbated by ongoing emotional stress. c/w 10 mg amlodipine BID.
# Remote tobacco use quit more than 30 years ago
Denies seasonal allergies/asthma.
# Essential hypertension,
better controlled
c/w amlodipine. Holding HCTZ due to use of IV contrast, concern of hyponatremia especially with ongoing pulmonary disease, might exacerbate SIADH.
# ADHD
Urine drug screen positive for amphetamines, she is on Adderall
No history of drug use.
c/w PRN Xanax for anxiety
# Under weight
# Hypokalemia
replaced
#Hyponatremia, mild
c/w regular diet
# Heart murmur and h/o aortic graft.
Patient denies history of chest pain.
Blood culture so far negative
EKG showed SR
Echocardiogram showed LVEF 70 to 75%, aortic sclerosis without stenosis, moderate concentric left ventricular hypertrophy.
# Case management is consulted to help patient with her living situation.
Full code
Total time spent to see the patient, examine the patient, review data and lab results, discuss treatment plan with patient and nursing staff around 55 minutes
Anticipated Discharge: > 48 hours
Subjective/Interval History
-
Date of Service: June 15, 2024
No abdominal pain
Slept better last night
Denies pain in feet/hands
No chest pain
No fevers
Objective Data
-
Labs:
Laboratory Results
06/15/24
05:47
WBC 6.3
Hgb 13.5
Hct 41.1
Plt Count 298 D
Sodium 137
Potassium 4.7
Chloride 100
Carbon Dioxide 34 H
BUN 19 H
Creatinine 0.6
Glucose 102 H
Calcium 8.8
Vital Signs:
Vital Signs
Temp Pulse Resp BP Pulse Ox
97.8 F 76 18 128/80 94
06/15/24 07:00 06/15/24 09:08 06/15/24 07:45 06/15/24 09:08 06/15/24 07:45
I&O
06/14/24 06/15/24 06/16/24
06:59 06:59 06:59
Intake Total 1260 / 1260 1700 / 1700
Balance 1260 / 1260 1700 / 1700
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
[2024-06-15 15:00] VITALS: BP 144/62
[2024-06-15 16:27] VITALS: O2SAT 95
[2024-06-15] MEDS: ROBITUSSIN 100 MG PO ×2 (17:00→21:30)
[2024-06-15] MEDS: LOVENOX 30 MG SC (17:04)
[2024-06-15 21:00] VITALS: BP 129/78
[2024-06-15] MEDS: STERILE WATER FOR INJECTION 10 ML IV (21:21)
[2024-06-15] MEDS: ROCEPHIN 1000 MG IV (21:21)
[2024-06-15] MEDS: XANAX 0.25 MG PO (22:02)
[2024-06-15 23:07] VITALS: BP 150/81
[2024-06-16] MEDS: ROBITUSSIN 100 MG PO ×2 (03:53→18:38)
[2024-06-16 05:37] LABS: Hematocrit 41.7 % (37.0-47.0); Hemoglobin 13.5 g/dL (12.0-16.0); Mean Corp Hgb Conc. 32.4 g/dL (33.0-37.0); Mean Corpuscular Hgb 29.6 pg (27.0-31.0); Mean Corpuscular Volume 91.4 fL (81.0-99.0); Mean Platelet Volume 9.2 fL (7.4-10.4); Platelet Count 301 10^3/uL (130-400); Red Blood Cell Count 4.56 10^6/uL (4.20-5.40); Red Cell Dist. Width 12.3 % (11.5-14.5); White Blood Cell Count 5.9 10^3/uL (4.8-10.8)
[2024-06-16 05:54] LABS: Blood Urea Nitrogen 17 mg/dl (7-17); Carbon Dioxide 34 mmol/L (22-30); Chloride 97 mmol/L (98-107); Estimated Creatinine Clearance 62 ml/min; Glucose 104 mg/dl (70-99); Sodium 137 mmol/L (135-145); eGFR > 60.00
[2024-06-16 07:05] VITALS: BP 133/67
[2024-06-16] MEDS: DUONEB 3 ML INH ×4 (07:26→20:04)
[2024-06-16] MEDS: ADDERALL 30 MG PO ×2 (08:30→13:59)
[2024-06-16] MEDS: MUCINEX 600 MG PO ×2 (08:30→20:54)
[2024-06-16] MEDS: NORVASC 10 MG PO ×2 (08:30→20:54)
--- NOTE | 2024-06-16 10:46 | CM ---
Chart reviewed for d/c planning. Per chart, pt lives in her car, has been for the past 10 years. 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
Therapy is recommending home PT which would be difficult as pt is currently homeless. Pt continues to be on 2L O2, home O2 assessment to be completed either today or tomorrow per hospitalist. Will have to discuss options w/ pt and daughter if pt
requires O2 at d/c considering her lack of housing at this time. Per hospitalist, anticipate d/c in 24-48 hours.
Plan: CM will watch for O2 needs and cont to follow hospital course
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
[2024-06-16 15:05] VITALS: BP 130/68
[2024-06-16] MEDS: DUONEB INH (15:20)
--- NOTE | 2024-06-16 15:46 | W.PN.HOSP.TC ---
Today's Communication/Plan
-
continue Abx
wean O2 as possible
Assessment / Plan
Assessment / Plan
Assessment:
Acute hypoxic respiratory insufficiency, 93% on room air
- currently on 1L - wean as able
Sepsis POA (fever, lactic acidosis, tachycardia, leukocytosis)
Left-sided pneumonia, progressive with airway obstruction in the left mainstem
Small left pleural effusion
- CT: Persistent left lower lobe 'consolidation' without significant change in comparison to recent prior study. Central mass in the left lower chest would be unlikely but again cannot be entirely excluded. Follow-up Chest CT could be obtained,
perhaps in one month.
- s/p Bronch 06/11: see report
- follow cultures. bronch cytology was negative
- s/p Azithro course
- continue Rocephin, day 9
- pulmonary following.
- continue aggressive suction and pulm toileting
Mild scoliosis
Hx of ADHD
- On Adderall
Hx of Autoimmune dz, suspected Raynaud with acrocyanosis
- on Amlodipine BID
Essential Hypertension
- continue Amlodipine
History of aortic surgery, graft, age 24
Less than 54-qjes-wckd history of smoking, quit
Former alcohol use, quit
Homeless, lives in her car since 2013
5 mm right lower lobe nodule
Under weight
hypokalemia
- replaced
Hyponatremia, mild
- monitor
- off HCTZ
Heart murmur and h/o aortic graft.
- Echocardiogram showed LVEF 70 to 75%, aortic sclerosis without stenosis, moderate concentric left ventricular hypertrophy.
DVT ppx: Lovenox
Code: Full
Anticipated Discharge: > 48 hours
Subjective/Interval History
-
Date of Service: June 16, 2024
not yet back to baseline, feels SOB
Objective Data
-
Labs:
Laboratory Results
06/16/24
05:15
WBC 5.9
Hgb 13.5
Hct 41.7
Plt Count 301
Sodium 137
Potassium 5.0
Chloride 97 L
Carbon Dioxide 34 H
BUN 17
Creatinine 0.7
Glucose 104 H
Calcium 9.0
Vital Signs:
Vital Signs
Temp Pulse Resp BP Pulse Ox
97.7 F 80 18 133/67 93
06/16/24 07:05 06/16/24 07:30 06/16/24 11:39 06/16/24 07:05 06/16/24 11:39
I&O
06/15/24 06/16/24 06/17/24
06:59 06:59 06:59
Intake Total 1700 / 1700 1720 / 1720
Balance 1700 / 1700 1720 / 1720
Physical Exam
-
General: No Apparent Distress
HEENT: Normocephalic and Atraumatic
Respiratory: Decreased Breath Sounds (L side); Negative Wheezes or Rales
Cardiac: Regular Rhythm and S1/S2
GI: Soft
Musculoskeletal: No Edema
Neuro: AO x 3
Hematologic / Lymphatic: No Lymphadenopathy
Psych: Calm
Data Reviewed
-
Total Time Spent with Patient (in minutes): 45
Labs: Labs Reviewed by me
[2024-06-16] MEDS: LOVENOX 30 MG SC (17:40)
[2024-06-16] MEDS: SODIUM CHLORIDE 3% FOR INHALATION 1 VIAL INH (20:04)
[2024-06-16] MEDS: STERILE WATER FOR INJECTION 10 ML IV (21:21)
[2024-06-16] MEDS: ROCEPHIN 1000 MG IV (21:21)
[2024-06-16] MEDS: XANAX 0.25 MG PO (21:55)
[2024-06-16 23:13] VITALS: BP 156/76
[2024-06-17] MEDS: DUONEB 3 ML INH ×3 (07:53→15:41)
[2024-06-17] MEDS: SODIUM CHLORIDE 3% FOR INHALATION 1 VIAL INH (07:53)
[2024-06-17 08:05] VITALS: BP 109/65
[2024-06-17 08:22] LABS: Hematocrit 39.7 % (37.0-47.0); Hemoglobin 13.1 g/dL (12.0-16.0); Mean Corpuscular Hgb 29.9 pg (27.0-31.0); Mean Corpuscular Volume 90.6 fL (81.0-99.0); Mean Platelet Volume 9.2 fL (7.4-10.4); Platelet Count 341 10^3/uL (130-400); Red Blood Cell Count 4.38 10^6/uL (4.20-5.40); Red Cell Dist. Width 12.2 % (11.5-14.5); White Blood Cell Count 5.3 10^3/uL (4.8-10.8)
[2024-06-17 08:45] LABS: Blood Urea Nitrogen 19 mg/dl (7-17); Calcium 8.9 mg/dl (8.4-10.2); Carbon Dioxide 32 mmol/L (22-30); Chloride 97 mmol/L (98-107); Estimated Creatinine Clearance 62 ml/min; Glucose 102 mg/dl (70-99); Potassium 4.7 mmol/L (3.5-5.1); Sodium 136 mmol/L (135-145); eGFR > 60.00
[2024-06-17] MEDS: MUCINEX 600 MG PO (08:48)
[2024-06-17] MEDS: NORVASC 10 MG PO (08:48)
[2024-06-17] MEDS: ADDERALL 30 MG PO ×2 (08:48→13:50)
[2024-06-17 10:46] VITALS: BP 134/65; PULSE 80
[2024-06-17 11:12] VITALS: BP 134/65; PULSE 80; O2SAT 96
--- NOTE | 2024-06-17 11:33 | W.PN.HOSP.TC ---
Today's Communication/Plan
-
dc planning
Assessment / Plan
Assessment / Plan
Assessment:
Acute hypoxic respiratory insufficiency, 93% on room air
- weaned to RA. home O2 evaluation passed
Sepsis POA (fever, lactic acidosis, tachycardia, leukocytosis)
Left-sided pneumonia, progressive with airway obstruction in the left mainstem
Small left pleural effusion
- CT: Persistent left lower lobe 'consolidation' without significant change in comparison to recent prior study. Central mass in the left lower chest would be unlikely but again cannot be entirely excluded. Follow-up Chest CT could be obtained,
perhaps in one month.
- s/p Bronch 06/11: see report
- follow cultures. bronch cytology was negative
- s/p Azithro/Rocephin course
- continue aggressive suction and pulm toileting
- follow pulm recs
Mild scoliosis
Hx of ADHD
- On Adderall
Hx of Autoimmune dz, suspected Raynaud with acrocyanosis
- on Amlodipine BID
Essential Hypertension
- continue Amlodipine
History of aortic surgery, graft, age 24
Less than 65-gasz-hhmw history of smoking, quit
Former alcohol use, quit
Homeless, lives in her car since 2013
5 mm right lower lobe nodule
Under weight
hypokalemia
- replaced
Hyponatremia, mild
- monitor
- off HCTZ
Heart murmur and h/o aortic graft.
- Echocardiogram showed LVEF 70 to 75%, aortic sclerosis without stenosis, moderate concentric left ventricular hypertrophy.
DVT ppx: Lovenox
Code: Full
Anticipated Discharge: Within 24 hours
Subjective/Interval History
-
Date of Service: June 17, 2024
feels marginally improved
on 1L or less now
Objective Data
-
Labs:
Laboratory Results
06/17/24
07:43
WBC 5.3
Hgb 13.1
Hct 39.7
Plt Count 341
Sodium 136
Potassium 4.7
Chloride 97 L
Carbon Dioxide 32 H
BUN 19 H
Creatinine 0.7
Glucose 102 H
Calcium 8.9
Vital Signs:
Vital Signs
Temp Pulse Resp BP Pulse Ox
98.1 F 78 18 131/68 99
06/17/24 08:05 06/17/24 11:29 06/17/24 11:29 06/17/24 08:48 06/17/24 11:29
I&O
06/16/24 06/17/24 06/18/24
06:59 06:59 06:59
Intake Total 1720 / 1720 1560 / 1560
Balance 1720 / 1720 1560 / 1560
Physical Exam
-
General: No Apparent Distress
HEENT: Normocephalic and Atraumatic
Respiratory: Negative Wheezes
Cardiac: Regular Rhythm and S1/S2
GI: Soft and Nontender
Genito-urinary: No Costovertebral Tender
Neuro: AO x 3
Psych: Calm
Data Reviewed
-
Total Time Spent with Patient (in minutes): 42
Labs: Labs Reviewed by me
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
[2024-06-17] MEDS: ROBITUSSIN AC 10 ML PO (14:38)
[2024-06-17 15:15] VITALS: BP 136/75
--- NOTE | 2024-06-17 16:43 | W.DS.TRANS ---
DC Summary - Nurse School
-
Discharge Instructions:
Discharge Diagnosis/Procedures L sided pneumonia s/p bronch 2/, hypoxia
resolved
Diet Regular
Activity As tolerated
Instructions:
Stand-Alone Forms:
Changes to Home Medications: Yes
Discharge Medications:
DC Medications w/original date entered in [facility] [facility] [employer]
dextroamphetamine-amphetamine 30 mg tablet 30 mg PO BID ADHD 06/09/24
amlodipine 10 mg tablet 10 mg PO BID #60 tabs 06/17/24
guaifenesin 600 mg tablet, extended release 12 hr 600 mg PO Q12 #20 tabs 06/17/24
Home Medication Changes
HCTZ stop
Pending Results: No
Total time spent discharging patient (in min): 41
--- NOTE | 2024-06-17 17:18 | CM ---
entered order for discharge.
CM spoke with Jian Lutz from [facility] she can not offer her a hotel room.
Pt offered [facility] locates . She declined she said it was scary.
Spoke with Lenora [phone] from [employer] she said she knows pt and would like her to call her about her concerns about [facility] [employer].
and CM spoke with pt in room.Pt refused to call [facility] [employer] rep she said she will not go there.
Pt has used [employer] in past.
LM with [facility] [phone] as per requested by pt.No call back.
Offered [facility] she said she already had.
Weaned to room air.
Pt s car in [facility] lot.
Refusing recourses as offered above,
MD aware.
PLAN Discharge to car.
--- NOTE | 2024-06-17 18:10 | PTCARENOTE ---
Pt. discharged by MD at around 1600. Pt. met with pillowcase turner to discuss potential shelters for pt. to go to when discharged. Pt. refused all help and stated she just wanted to leave. Discharge orders printed, med rec complete, IV taken out of arm.
Pt. with no questions. Pt. had meds at pharmacy and this nurse went down to pick them up and delivered them to pt.. Pt. still in hospital gown and told to get dressed and ring tabor when she was ready. This nurse was in another room when pt. walked
out in the hallway and informed the nurses near the nurses station she was leaving. Pt. did not want to wait for wheelchair, and continued to walk off unit.
== END 2024-06-17 17:45 | disposition other institution (70) | DRG 871 ==
LOC: 3 WEST ACU 22:42
PROVIDERS: Internal Medicine; Nurse Practitioner Gerontology; Student in an Organized Health Care Education/Training Program; ADMITTING PHYSICIAN Internal Medicine; ATTENDING PHYSICIAN Internal Medicine; EMERGENCY PHYSICIAN Emergency Medicine; OTHER PHYSICIAN Internal Medicine Critical Care Medicine
PROC: 0B9M8ZZ Drainage of Bilateral Lungs, Via Natural or Artificial Opening Endoscopic (ICD-10-PCS; 2024-06-11)
PROC: 0B918ZZ Drainage of Trachea, Via Natural or Artificial Opening Endoscopic (ICD-10-PCS; 2024-06-11)
DX: A41.9 Sepsis, unspecified organism (principal); J18.9 Pneumonia, unspecified organism; Z59.02 Unsheltered homelessness; J98.11 Atelectasis; J90 Pleural effusion, not elsewhere classified; E87.1 Hypo-osmolality and hyponatremia; Z68.1 Body mass index [BMI] 19.9 or less, adult; R64 Cachexia; R09.02 Hypoxemia; I10 Essential (primary) hypertension; Z87.891 Personal history of nicotine dependence; F90.9 Attention-deficit hyperactivity disorder, unspecified type; M41.9 Scoliosis, unspecified; Z11.52 Encounter for screening for COVID-19; I73.00 Raynaud's syndrome without gangrene; I73.89 Other specified peripheral vascular diseases; E87.6 Hypokalemia; I70.0 Atherosclerosis of aorta; I51.7 Cardiomegaly; R63.6 Underweight; Z95.2 Presence of prosthetic heart valve; R65.20 Severe sepsis without septic shock
CPT/HCPCS: 88305; 71045; 71046; 71250; 71260; 80048; 80053; 80306; 80307; 81003; 81015; 83605; 85025; 85027; 87015; 87040; 87070; 87086; 87102; 87106; 87116; 87205; 87449; 87502; 87811; 87899; 88112; 93005; 93306; 94640; 94660; 94667; 94668; 94669; 96361; 96365; 96375; 97116; 97162; 97166; 97530; 99285; Q9967